=== PATIENT | female | born 1980 | race Caucasian/White ===

== ENCOUNTER 2018-11-07 13:06 | Emergency (ER) | payer BC, SELFPAY ==
[2018-11-07 13:19] VITALS: BP 124/69; PULSE 68; RESP 13; TEMP 35.7; O2SAT 99
--- NOTE | 2018-11-07 13:40 | ED.DIZZY ---
HPI - Dizziness General Chief Complaint: Dizziness Stated Complaint: hurt neck, dizzy, nauseous, vomitting Time Seen by Provider: 11/07/18 13:22 Source: patient Mode of arrival: ambulatory Limitations: no limitations History of Present Illness HPI Narrative: Patient is a 38-year-old female who presents with sudden-onset dizziness. She says she woke up this morning with some abdominal discomfort. She got up she bent down and suddenly felt very dizzy. When she got up the dizziness was worse. She threw up a couple times. She was drenching sweat have few times earlier today. She at no time had any heart palpitations or shortness of breath. She has some mild discomfort in her abdomen now. They are from [place] and supposed to be traveling back to [facility] this evening on a red eye flight. MD complaint: lightheadedness and near syncope Description: room spinning and lightheadedness History of similar episodes: No History of trauma: No Severity: moderate Relieving factors: remaining still Exacerbating factors: movement Related Data Previous Rx's Medication Instructions Recorded meclizine 25 mg PO TID PRN #10 tab 11/07/18 ondansetron 4 mg PO Q8H PRN #10 tab 11/07/18 Review of Systems Review of Systems ROS Unobtainable: All systems reviewed & are unremarkable except as noted in HPI and below Constitutional Denies chills, Denies fever(s), Denies lethargy and Denies weakness ENT Ears, Nose, Mouth, and Throat: Denies change in voice, Denies neck pain and Denies sore throat Cardiovascular Denies chest pain, Denies irregular heart rhythm, Reports lightheadedness, Denies dyspnea and Denies dyspnea on exertion Respiratory Denies cough, Denies dyspnea, Denies dyspnea on exertion and Denies wheezing Gastrointestinal Gastrointestinal: Denies abdominal pain, Denies change in bowel habits, Denies diarrhea, Denies nausea and Denies vomiting Genitourinary Denies hematuria, Denies flank pain, Denies urinary incontinence and Denies urinary urgency Musculoskeletal Denies neck pain Integumentary/Breasts Denies pruritus, Denies erythema, Denies rash and Denies wounds Neurologic Denies weakness Allergic/Immunologic Denies wheezing [facility] Medical History Patient denies significant medical history (Acute) Social History Smoking Status: Never smoker Social History Smoking Status: Never smoker Exam Initial Vital Signs Initial Vital Signs: Vital Signs Temperature 96.2 F L 11/07/18 13:19 Pulse Rate 68 11/07/18 13:19 Respiratory Rate 13 11/07/18 13:19 Blood Pressure 124/69 11/07/18 13:19 Pulse Oximetry 99 11/07/18 13:19 GENERAL: Well-appearing, well-nourished and in no acute distress. HEENT: Head atraumatic,EOMI, pupils reactive, face symmetric, moist mucous membranes CARDIOVASCULAR: Regular rate and rhythm without murmurs, rubs or gallops. RESPIRATORY: Breath sounds equal bilaterally, no wheezes rales or rhonchi. ABDOMEN: Soft, mild diffuse abdominal tenderness no guarding no rebound no distention normal bowel sounds negative Huffman sign no right lower quadrant pain EXTREMITIES: Normal range of motion, no clubbing or edema. Neurovascularly intact NEUROLOGICAL: Alert and oriented x4.Normal gait and speech SKIN: Warm, dry, no laceration, no petechiae, no rashes or lesions. Course Orders Ordered: ED Orders 11/07/18 13:57 EKG-12 Lead Stat 11/07/18 14:15 Basic Metabolic Panel Stat Complete Blood Count AUTO DIFF Stat Discontinued Medications Sodium Chloride (Normal Saline 0.9%) 1,000 mls @ 1,000 mls/hr IV CONT MICKY Last Infusion: 11/07/18 15:35 Dose: 0 mls/hr Admin: 11/07/18 14:09 Dose: 1,000 mls/hr Ketorolac Tromethamine (Toradol) 30 mg IV NOW ONE Stop: 11/07/18 15:17 Last Admin: 11/07/18 15:31 Dose: 30 mg Meclizine HCl (Antivert) 25 mg PO NOW ONE Stop: 11/07/18 13:47 Last Admin: 11/07/18 14:09 Dose: 25 mg Ondansetron HCl (Zofran) 4 mg IV NOW ONE Stop: 11/07/18 13:47 Last Admin: 11/07/18 14:09 Dose: 4 mg Vital Signs - 8 hr 11/07/18 13:19 Temperature 96.2 F L Pulse Rate 68 Respiratory Rate 13 Blood Pressure 124/69 Pulse Oximetry 99 MDM - Dizziness Lab Data Attestation: I reviewed the patient's lab results. Result diagrams: 11/07/18 14:15 11/07/18 14:15 Lab Results 11/07/18 11/07/18 Range/Units 14:15 14:15 WBC 12.6 H (4.5-11.0) X10^3/uL RBC 5.26 H (4.0-5.2) X10^6/uL Hgb 15.0 (12.0-16.0) g/dL Hct 44.5 (36-46) % MCV 84.6 (80-100) fL MCH 28.5 (26-34) PG MCHC 33.7 (30-36) % RDW 12.8 (11.6-14.8) % Plt Count 318 (150-400) X10^3/uL Neut % (Auto) 89.7 H (50-75) % Lymph % (Auto) 6.9 L (25-40) % [place] % (Auto) 2.4 L (3-14) % Eos % (Auto) 0.2 L (2-4) % Baso % (Auto) 0.8 (0-2) % Neut # (Auto) 51140 H (8093-7592) /uL Lymph # (Auto) 900 L (3483-0007) /uL [place] # (Auto) 300 (0-900) /uL Eos # (Auto) 0 (0-450) /uL Baso # (Auto) 100 (0-100) /uL Sodium 141 (137-145) mmol/L Potassium 4.1 (3.4-5.1) mmol/L Chloride 102 (98-107) mmol/L Carbon Dioxide 29 (22-32) mmol/L BUN 14 (7-17) mg/dL Creatinine 0.70 (0.52-1.04) mg/dL Estimated GFR > 60.0 (>60) mL/min BUN/Creatinine Ratio 20.0 (6-22) Glucose 114 H (70-100) mg/dL Calcium 9.7 (8.4-10.2) mg/dL Point of Care Testing Test Results Negative Urine Dip Bedside Urine Glucose Negative Bedside Urine Bilirubin - Negative Bedside Urine Ketone - Negative Urine Specific [place] 1.010 Bedside Urine Occult Blood +/- Bedside Urine pH 8.5 Bedside Urine Protein +/- 15 Bedside Urine Urobilinogen +/- 1mg Bedside Urine Nitrite - Negative Bedside Urine Leukocytes - Negative Esterase ECG Data Attestation: I personally reviewed and interpreted this ECG as follows: Prior ECG tracings: not available for review Interpretation: Sinus arrhythmia rate 57 p.r. interval [address] changes no T-wave inversions no priors to compare MDM Narrative Medical decision making narrative: The patient overall feeling much better she can sit up now and not feel dizzy. She feels ready and able to go home. She has no focal deficits. Dizziness is worse with movement. At this time I suspect benign paroxysmal positional vertigo rather than posterior stroke. Her abdomen is soft I see no need for any imaging at this time. Discharge Plan Departure Patient Disposition: Home Clinical Impression: Vertigo Discharge Date/Time: 11/07/18 15:54 Interventions: ED Discharge Assessment Last Done: 11/07/18 15:53 Instructions: DI for Vertigo Activity Restrictions/Additional Instructions: *You have been diagnosed with vertigo *What to do: At this time this is likely vertigo which is benign. It should get better over the next few days but may take up to a week. *Continue to take medications as directed Zofran 4 mg every 8 hours if needed for nausea or vomiting Meclizine 25 mg every 8 hours if only if needed for dizziness Ibuprofen 800 mg every 8 hours if needed for headache wait 8 hours after leaving the emergency department take any please *Follow up with your primary care provider in 2-3 days *Return to ER if you should have normal increasing dizziness weakness persistent vomiting worsening abdominal pain or any new, worsening or concerning symptoms Prescriptions: New meclizine 25 mg tablet 25 mg PO TID PRN (Reason: dizziness) Qty: 10 RF: 0 ondansetron 4 mg tablet,disintegrating 4 mg PO Q8H PRN (Reason: nausea and vomiting) Qty: 10 RF: 0
--- NOTE | 2018-11-07 13:51 | ED_ITS ---
HPI - Dizziness General Chief Complaint: Dizziness Stated Complaint: hurt neck, dizzy, nauseous, vomitting Time Seen by Provider: 11/07/18 13:22 Source: patient Mode of arrival: ambulatory Limitations: no limitations History of Present Illness HPI Narrative: Patient is a 38-year-old female who presents with sudden-onset dizziness. She says she woke up this morning with some abdominal discomfort. She got up she bent down and suddenly felt very dizzy. When she got up the dizziness was worse. She threw up a couple times. She was drenching sweat have few times earlier today. She at no time had any heart palpitations or shortness of breath. She has some mild discomfort in her abdomen now. They are from [facility] and supposed to be traveling back to [facility] this evening on a red eye flight. MD complaint: lightheadedness and near syncope Description: room spinning and lightheadedness History of similar episodes: No History of trauma: No Severity: moderate Relieving factors: remaining still Exacerbating factors: movement Related Data Previous Rx's Medication Instructions Recorded meclizine 25 mg PO TID PRN #10 tab 11/07/18 ondansetron 4 mg PO Q8H PRN #10 tab 11/07/18 Review of Systems Review of Systems ROS Unobtainable: All systems reviewed & are unremarkable except as noted in HPI and below Constitutional Denies chills, Denies fever(s), Denies lethargy and Denies weakness ENT Ears, Nose, Mouth, and Throat: Denies change in voice, Denies neck pain and Denies sore throat Cardiovascular Denies chest pain, Denies irregular heart rhythm, Reports lightheadedness, Denies dyspnea and Denies dyspnea on exertion Respiratory Denies cough, Denies dyspnea, Denies dyspnea on exertion and Denies wheezing Gastrointestinal Gastrointestinal: Denies abdominal pain, Denies change in bowel habits, Denies diarrhea, Denies nausea and Denies vomiting Genitourinary Denies hematuria, Denies flank pain, Denies urinary incontinence and Denies urinary urgency Musculoskeletal Denies neck pain Integumentary/Breasts Denies pruritus, Denies erythema, Denies rash and Denies wounds Neurologic Denies weakness Allergic/Immunologic Denies wheezing [facility] Medical History Patient denies significant medical history (Acute) Social History Smoking Status: Never smoker Social History Smoking Status: Never smoker Exam Initial Vital Signs Initial Vital Signs: Vital Signs Temperature 96.2 F L 11/07/18 13:19 Pulse Rate 68 11/07/18 13:19 Respiratory Rate 13 11/07/18 13:19 Blood Pressure 124/69 11/07/18 13:19 Pulse Oximetry 99 11/07/18 13:19 GENERAL: Well-appearing, well-nourished and in no acute distress. HEENT: Head atraumatic,EOMI, pupils reactive, face symmetric, moist mucous membranes CARDIOVASCULAR: Regular rate and rhythm without murmurs, rubs or gallops. RESPIRATORY: Breath sounds equal bilaterally, no wheezes rales or rhonchi. ABDOMEN: Soft, mild diffuse abdominal tenderness no guarding no rebound no distention normal bowel sounds negative Huffman sign no right lower quadrant pain EXTREMITIES: Normal range of motion, no clubbing or edema. Neurovascularly intact NEUROLOGICAL: Alert and oriented x4.Normal gait and speech SKIN: Warm, dry, no laceration, no petechiae, no rashes or lesions. Course Orders Ordered: ED Orders 11/07/18 13:57 EKG-12 Lead Stat 11/07/18 14:15 Basic Metabolic Panel Stat Complete Blood Count AUTO DIFF Stat Discontinued Medications Sodium Chloride (Normal Saline 0.9%) 1,000 mls @ 1,000 mls/hr IV CONT MICKY Last Infusion: 11/07/18 15:35 Dose: 0 mls/hr Admin: 11/07/18 14:09 Dose: 1,000 mls/hr Ketorolac Tromethamine (Toradol) 30 mg IV NOW ONE Stop: 11/07/18 15:17 Last Admin: 11/07/18 15:31 Dose: 30 mg Meclizine HCl (Antivert) 25 mg PO NOW ONE Stop: 11/07/18 13:47 Last Admin: 11/07/18 14:09 Dose: 25 mg Ondansetron HCl (Zofran) 4 mg IV NOW ONE Stop: 11/07/18 13:47 Last Admin: 11/07/18 14:09 Dose: 4 mg Vital Signs - 8 hr 11/07/18 13:19 Temperature 96.2 F L Pulse Rate 68 Respiratory Rate 13 Blood Pressure 124/69 Pulse Oximetry 99 MDM - Dizziness Lab Data Attestation: I reviewed the patient's lab results. Result diagrams: 11/07/18 14:15 11/07/18 14:15 Lab Results 11/07/18 11/07/18 Range/Units 14:15 14:15 WBC 12.6 H (4.5-11.0) X10^3/uL RBC 5.26 H (4.0-5.2) X10^6/uL Hgb 15.0 (12.0-16.0) g/dL Hct 44.5 (36-46) % MCV 84.6 (80-100) fL MCH 28.5 (26-34) PG MCHC 33.7 (30-36) % RDW 12.8 (11.6-14.8) % Plt Count 318 (150-400) X10^3/uL Neut % (Auto) 89.7 H (50-75) % Lymph % (Auto) 6.9 L (25-40) % [place] % (Auto) 2.4 L (3-14) % Eos % (Auto) 0.2 L (2-4) % Baso % (Auto) 0.8 (0-2) % Neut # (Auto) 49249 H (0086-5649) /uL Lymph # (Auto) 900 L (6380-8107) /uL [place] # (Auto) 300 (0-900) /uL Eos # (Auto) 0 (0-450) /uL Baso # (Auto) 100 (0-100) /uL Sodium 141 (137-145) mmol/L Potassium 4.1 (3.4-5.1) mmol/L Chloride 102 (98-107) mmol/L Carbon Dioxide 29 (22-32) mmol/L BUN 14 (7-17) mg/dL Creatinine 0.70 (0.52-1.04) mg/dL Estimated GFR > 60.0 (>60) mL/min BUN/Creatinine Ratio 20.0 (6-22) Glucose 114 H (70-100) mg/dL Calcium 9.7 (8.4-10.2) mg/dL Point of Care Testing Test Results Negative Urine Dip Bedside Urine Glucose Negative Bedside Urine Bilirubin - Negative Bedside Urine Ketone - Negative Urine Specific [place] 1.010 Bedside Urine Occult Blood +/- Bedside Urine pH 8.5 Bedside Urine Protein +/- 15 Bedside Urine Urobilinogen +/- 1mg Bedside Urine Nitrite - Negative Bedside Urine Leukocytes - Negative Esterase ECG Data Attestation: I personally reviewed and interpreted this ECG as follows: Prior ECG tracings: not available for review Interpretation: Sinus arrhythmia rate 57 p.r. interval [address] changes no T- wave inversions no priors to compare MDM Narrative Medical decision making narrative: The patient overall feeling much better she can sit up now and not feel dizzy. She feels ready and able to go home. She has no focal deficits. Dizziness is worse with movement. At this time I suspect benign paroxysmal positional vertigo rather than posterior stroke. Her abdomen is soft I see no need for any imaging at this time. Discharge Plan Departure Patient Disposition: Home Clinical Impression: Vertigo Discharge Date/Time: 11/07/18 15:54 Interventions: ED Discharge Assessment Last Done: 11/07/18 15:53 Instructions: DI for Vertigo Activity Restrictions/Additional Instructions: *You have been diagnosed with vertigo *What to do: At this time this is likely vertigo which is benign. It should get better over the next few days but may take up to a week. *Continue to take medications as directed Zofran 4 mg every 8 hours if needed for nausea or vomiting Meclizine 25 mg every 8 hours if only if needed for dizziness Ibuprofen 800 mg every 8 hours if needed for headache wait 8 hours after leaving the emergency department take any please *Follow up with your primary care provider in 2-3 days *Return to ER if you should have normal increasing dizziness weakness persistent vomiting worsening abdominal pain or any new, worsening or concerning symptoms Prescriptions: New meclizine 25 mg tablet 25 mg PO TID PRN (Reason: dizziness) Qty: 10 RF: 0 ondansetron 4 mg tablet,disintegrating 4 mg PO Q8H PRN (Reason: nausea and vomiting) Qty: 10 RF: 0
[2018-11-07] MEDS: SODIUM CHLORIDE 0.9% 1,000 ML 1000 ML IV (14:09)
[2018-11-07] MEDS: MECLIZINE HCL 12.5 MG TABLET 25 MG PO (14:09)
[2018-11-07] MEDS: ONDANSETRON 4 MG/2 ML INJ IV (14:09)
[2018-11-07 14:27] LABS: Add Manual Diff / Slide Review NO; Basophils Absolute Auto 100 /uL (0-100); Basophils Percent Auto 0.8 % (0-2); Eosinophils Absolute Auto 0 /uL (0-450); Eosinophils Percent Auto 0.2 % (2-4); Hematocrit 44.5 % (36-46); Lymphocytes Absolute Auto 900 /uL (1100-4500); Lymphocytes Percent Auto 6.9 % (25-40); Mean Corpuscular HGB Conc 33.7 % (30-36); Mean Corpuscular Hemoglobin 28.5 PG (26-34); Mean Corpuscular Volume 84.6 fL (80-100); Monocytes Absolute Auto 300 /uL (0-900); Monocytes Percent Auto 2.4 % (3-14); Neutrophils Absolute Auto 11300 /uL (1500-7000); Neutrophils Percent Auto 89.7 % (50-75); Platelet Count 318 X10^3/uL (150-400); Red Blood Cell Count 5.26 X10^6/uL (4.0-5.2); Red Cell Distribution Width 12.8 % (11.6-14.8); White Blood Cell Count 12.6 X10^3/uL (4.5-11.0)
[2018-11-07 14:41] LABS: Blood Urea Nitrogen 14 mg/dL (7-17); Calcium 9.7 mg/dL (8.4-10.2); Carbon Dioxide 29 mmol/L (22-32); Chloride 102 mmol/L (98-107); Estimated Glomerular Filt Rate > 60.0 mL/min (>60); Glucose 114 mg/dL (70-100); HEMOLYSIS < 15 (0-50); Potassium 4.1 mmol/L (3.4-5.1); Sodium 141 mmol/L (137-145)
[2018-11-07] MEDS: KETOROLAC 60 MG/2 ML VIAL 30 MG IV (15:31)
== END 2018-11-07 15:54 | disposition home or self-care (01) ==
PROVIDERS: Emergency Provider Emergency Medicine
DX: R42 Dizziness and giddiness (principal)
CPT/HCPCS: 36591; 80048; 81003; 81025; 85025; 93005; 96361; 96374; 96375; 99283; 99284; J1885; J2405